=== PATIENT | male | born 1985 | race Caucasian/White ===

== ENCOUNTER 2018-03-14 20:55 | Emergency (ER) | payer OTHER ==
[~2018-03-14] VITALS: Ht 175.3 cm; Wt 103.4 kg
--- NOTE | 2018-03-14 23:14 | Diagnostic Imaging Report ---
EXAM: KNEE RIGHT THREE VIEWS, AP, crosstable lateral and oblique INDICATION: Fall in shower, hit knee COMPARISON: None FINDINGS: BONES: No acute fractures. Partially visualized femoral intramedullary fabián and screw. No evidence of hardware loosening. JOINTS: No malalignment. SOFT TISSUES: Normal IMPRESSION: No right knee fracture. Signed by: Dr. Mariola Contreras M.D. on 03/14/2018 11:11 PM
[2018-03-14] MEDS ORDERED: HYDROCODONE/APAP 10MG-325MG TAB PO ONE (23:15)
[2018-03-14] MEDS ORDERED: ONDANSETRON HCL 4 MG ORAL DISINTEGRATING TAB PO ONE (23:15)
[2018-03-15] MEDS ORDERED: TYLENOL WITH C1 EACH PO (00:18)
[2018-03-15 00:19] VITALS: BP 130/94
== END 2018-03-15 00:32 | disposition home or self-care (01) ==
LOC: ER 20:55
DX: S83.91XA Sprain of unspecified site of right knee, initial encounter (principal); W18.2XXA Fall in (into) shower or empty bathtub, initial encounter; Y92.012 Bathroom of single-family (private) house as the place of occurrence of the external cause; F70 Mild intellectual disabilities
CPT/HCPCS: 99283